=== PATIENT | female | born 1995 | race Hispanic/Latino ===

== ENCOUNTER 2020-04-16 03:05 | Day surgery (SDC) | payer SELFPAY ==
[2020-04-16 03:32] VITALS: BP 113/68; TEMP 98.6; BMI 34.7
--- NOTE | 2020-04-16 04:13 | PDOC.FPROB ---
FMR OB H&P: HPI - History of Present Illness Chief Complaint: abdominal pain History of Present Illness: Pt is a 24yo @ 37.1wks who presents for evaluation of one episode of abdominal pain. Pain woke her from sleep at 1am, lasted 1-2minutes, resolved on own, described as starting off as cramp and then tightness all over, no radiation. Not had pain like this before. +FM. Was seen at [facility] today and told her cervix was closed. Just started taking iron yesterday. No records from [facility] at this time, but patient reports that all labs and US have been normal. Denies LOF, vaginal bleeding/discharge/pain, TORRES, N/V, vision change, CP, SOB. Primary Care Physician: [facility] FMR OB H&P: Current - Care : 1 Para: 0 Gestational age: 37.1 wks Due date: 05/06/20 Dating Criteria: no records Course/Complications: anemia of , started on iron FMR OB H&P: History - Past Medical History PMH: none - OB History OB History: , anemia of - MANAGER REVENUE History MANAGER REVENUE History: pt reports that pap was normal - Surgical History Sx History: none - Social History Social History: denies T/A/D - Family History Family History: Father: DM, "heart problems" FMR OB H&P: Medications - Current Home Medications: Medication Instructions Recorded Confirmed Type Ferrous Sulfate [Iron] 325 mg PO DAILY 04/16/20 04/16/20 History 21/Iron Fu/Folic Acid 1 tab PO DAILY 04/16/20 04/16/20 History [ Complete Caplet] Allergies/Adverse Reactions: Allergies Allergy/AdvReac Type Severity Reaction Status Date / Time No Known Allergies Allergy Unverified 04/16/20 03:26 FMR OB H&P: ROS - Review of Systems General: denies: fever/chills, recent trauma Eyes: denies: vision changes Cardiovascular: reports: edema (chronic). denies: chest pain Respiratory: denies: cough, congestion, shortness of breath Gastrointestinal: reports: abdominal pain. denies: nausea, vomiting, diarrhea Genitourinary (Female): denies: dysuria, vaginal discharge, vaginal pain, vaginal bleeding Neurologic: denies: headache FMR OB H&P: Vital Signs - Maternal Vital signs: Vital Signs - First Documented Temp Pulse Resp BP Pulse Ox 98.6 F 89 18 113/68 100 04/16/20 03:12 04/16/20 03:12 04/16/20 03:12 04/16/20 03:12 04/16/20 03:12 - Heart Tones Baseline: 130 Variability: moderate Acceleration: present Deceleration: absent Category: category 1 [employer] contractions every: irregular FMR OB H&P: Physical Exam - Physical Exam General: NAD, awake, alert and oriented HEENT: normocephalic and atraumatic, no scleral icterus, grossly normal vision, grossly normal hearing Neck: supple, FROM Chest: non-tender to palpation Heart: RRR, normal S1/S2, no murmurs/rubs/gallops, pulses present, no edema General: CTAB, no respiratory distress Abdomen: soft, gravid, non-tender, bowel sound present Musculoskeletal: pulses present, FROM in all four extremities, no atrophy Neurological: no focal deficit Skin: no rash, good tugor, capillary refill <2 seconds Psychiatric: intact recent and remote memory, normal mood and affect - Pelvic Exam SVE: closed FMR OB H&P: A/P Discussion: Date/Time: 04/16/20 0409 Pt is a 24yo @ 37.1wks #abdominal pain - PE: pt does not appear to be in acute distress, abdomen non-tender, soft - likely due to betsy-murillo contraction - not likely to be biliary colic: not related to food, short duration, no N/V - FHT: Cat 1 130/mod/+accel, no decel; irregular contractions not felt by patient - VSS. advised pt to drink plenty of fluid and f/u outpatient Tammi Deluna, PGY1 This H&P was discussed with Dr. Diya Figueredo and Dr. Radhames Durham who agree with the above documentation and plan.
--- NOTE | 2020-04-16 04:16 | PDOC.BPN ---
- Brief Progress Note OBGYN Faculty PNC patient at 37 weeks Triage B I have seen and evaluated the pt at bedside. CC: 1-2 min pain "across the abdomen", no radiation. Exam is benign. I do not feel this is c/w biliary colic based on location and brevity of pain. Not associated with po intake, no nausea, no SOB, no VB, no LOF , no fevers, no recent trauma. Clinically she is well. NST reactive. Agree with Dr Deluna plan. Ok for outpatient f/u
== END 2020-04-16 04:20 | disposition home or self-care (01) ==
LOC: L&D/OP 03:05
PROVIDERS: ATTEND Obstetrics & Gynecology
DX: O99.89 Other specified diseases and conditions complicating pregnancy, childbirth and the puerperium (principal); R10.9 Unspecified abdominal pain; O99.013 Anemia complicating pregnancy, third trimester; D64.9 Anemia, unspecified; Z3A.37 37 weeks gestation of pregnancy; Z79.899 Other long term (current) drug therapy
CPT/HCPCS: 99282

== ENCOUNTER 2020-04-28 08:35 | Outpatient (CLI) | payer OTHER ==
[2020-04-28 16:42] LABS: SARS-CoV-2 MS2 Positive; SARS-CoV-2 N Gene Positive; SARS-CoV-2 S Gene Positive; SARS-CoV-2 by NAA DETECTED (NotDetected); SARS-CoV-2 orf1ab Positive
== END 2020-04-28 08:36 | disposition home or self-care (01) ==
LOC: LABSCS 08:35
PROVIDERS: ATTEND Family Medicine
DX: U07.1 COVID-19 (principal)
CPT/HCPCS: 87635; U0003

== ENCOUNTER 2020-05-01 19:45 | Inpatient (IN) | payer OTHER, SELFPAY ==
[2020-05-02 00:28] VITALS: BMI 33.5
[2020-05-02] MEDS ORDERED: Methylergonovine 0.2 MG/ML VIAL IM PRN (01:52)
[2020-05-02] MEDS ORDERED: Misoprostol 200 MCG TAB PR PRN (01:52)
[2020-05-02] MEDS ORDERED: Carboprost 250 MCG/ML AMP IM PRN (01:52)
[2020-05-02] MEDS ORDERED: Lidocaine 1% (PF) 30 ML VIAL SC PRN (01:52)
[2020-05-02] MEDS ORDERED: hydrALAZINE 20 MG/ML VIAL SLOW IVP PRN (01:52)
[2020-05-02] MEDS ORDERED: NS / Oxytocin 40 units/1000ml 1,000 ML IV PRN (01:52)
[2020-05-02] MEDS ORDERED: Promethazine HCl 25 MG/ML VIAL IM PRN (01:52)
[2020-05-02] MEDS ORDERED: Ibuprofen 800 MG TAB PO PRN (01:52)
[2020-05-02] MEDS ORDERED: Ondansetron PF 4 MG/2 ML Vial IVP PRN (01:52)
[2020-05-02] MEDS ORDERED: Misoprostol 100 MCG TAB ONE (02:04)
--- NOTE | 2020-05-02 02:14 | PDOC.FPROB ---
FMR OB H&P: HPI - History of Present Illness Chief Complaint: eIOL History of Present Illness: 24 y/o F at 39.3 wks by 13 wk sono presents for elective IOL. Endorses good movement. Not feeling contractions, no LOF, vaginal bleeding, vaginal discharge, or urinary symptoms. Screened positive for COVID on 04/28, reports occasional cough but otherwise asymptomatic. Denies any oral or genital lesions or burning. Primary Care Physician: MARIA D Yusuf FMR OB H&P: Current - Care : 1 Para: 0 Gestational age: 39.3 Due date: 05/06/2020 Dating Criteria: 13 wk sono Course/Complications: IUGR at 31 weeks, resolved on subsequent growth sono; evaluated by MFM and +CMV IgG, MFM has requested placental pathology due to this. 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 NILM - Surgical History Sx History: none - Social History Social History: denies etoh, tobacco, drugs - Family History Family History: cancer, DM, heart disease, autism FMR OB H&P: Medications - Current Home Medications: Medication Instructions Recorded Confirmed Type Ferrous Sulfate [Iron] 325 mg PO DAILY 04/16/20 05/02/20 History 21/Iron Fu/Folic Acid 1 tab PO DAILY 04/16/20 05/02/20 History [ Complete Caplet] Ibuprofen [Motrin] 800 mg PO Q8HR PRN #21 tab 05/04/20 Rx Allergies/Adverse Reactions: Allergies Allergy/AdvReac Type Severity Reaction Status Date / Time No Known Allergies Allergy Verified 05/02/20 00:28 FMR OB H&P: ROS - Review of Systems General: denies: fever/chills, fatigue Eyes: denies: vision changes, floaters ENT: denies: nasal congestion, rhinorrhea Cardiovascular: denies: chest pain, palpitation, edema Respiratory: reports: cough. denies: congestion, shortness of breath Gastrointestinal: denies: abdominal pain, cramping, nausea, vomiting, diarrhea, constipation Genitourinary (Female): denies: dysuria, hematuria, polyuria, vaginal discharge, vaginal pain, vaginal bleeding, contractions, vaginal pressure Musculoskeletal: denies: pain Neurologic: denies: weakness, headache Integumentary: denies: rash, lesions Endocrine: denies: polydipsia, polyuria FMR OB H&P: Vital Signs - Maternal Vital signs: Vital Signs - First Documented Temp Pulse Resp BP Pulse Ox 98.0 F 98 16 111/74 100 05/02/20 00:20 05/02/20 00:20 05/02/20 00:20 05/02/20 00:20 05/02/20 00:20 - Heart Tones Baseline: 150 Variability: moderate Acceleration: present Deceleration: absent Category: category 1 [place] contractions every: 5 min FMR OB H&P: Physical Exam - Physical Exam General: NAD, awake, alert and oriented HEENT: normocephalic and atraumatic, EOMI, MMM, conjunctiva clear, grossly normal vision, grossly normal hearing Neck: supple Chest: non-tender to palpation Heart: RRR, normal S1/S2, no murmurs/rubs/gallops, pulses present, no edema General: CTAB, no respiratory distress, good air movement, no rales/rhonchi, no wheezing Abdomen: soft, gravid, non-tender, bowel sound present Musculoskeletal: pulses present Neurological: sensation to pain,touch and proprioception grossly normal, no clonus, no focal deficit Skin: no rash, capillary refill <2 seconds Lymphatic: no unusual bruising or bleeding Psychiatric: intact recent and remote memory, good judgement and insight, normal mood and affect - Pelvic Exam Vulva: no lesions Deviation from normal: speculum exam without HSV lesions Cervix: no lesions SVE: 1/10/-3/firm/posterior Kelly score: 1 Membranes: intact Presentation: cephalic on bedside sono FMR OB H&P: Results - Imaging Imaging: cephalic presentation by bedside sono FMR OB H&P: A/P Disposition: Ángel James 24 y/o F at 39.3 wks for eIOL. Cephalic presentation on bedside sono. - SVE 08/24/-3/posterior/firm, Kelly 1 @ 0230 - Cytotec x1 - Recheck SVE in 4 hours COVID positive Occasional cough, positive screen on 04/28. - COVID isolation precautions Hx of IUGR, TORCH IUGR on 31 wk sono noted, resolved by 36 weeks. Most recent growth sono with [place] 13%. CMV IgG pos, CMV IgM neg. - proceed with induction of labor - send placenta for path per [facility] Hx HSV No prodromal symptoms. Thorough internal and external examination performed, no active lesions. - may proceed with vaginal delivery Anemia of Hgb/Hct 11.0/31.3. - monitor bleeding post delivery Discussion: Date/Time: 05/02/20 0207 This H&P was discussed with Dr. Canada and Dr. Branch who agree with the above documentation and plan. Addendum - Attending - Attending Attestation Date/Time: 05/06/20 1038 I personally evaluated the patient and discussed the management with Dr. Canada. I agree with the History, Examination, Assessment and Plan documented above with any addition or exceptions noted below.
[2020-05-02] MEDS ORDERED: Misoprostol 100 MCG TAB VAG SCH (02:30)
[2020-05-02] MEDS: Lactated Ringer's 1,000 ML IV SCH ×3 (02:34→18:35)
[2020-05-02 02:50] LABS: Hemoglobin 13.4 g/dL (12.0-16.0); Mean Corpuscular HGB CONC 34.8 g/dL (32.0-36.0); Mean Corpuscular Hemoglobin 32.1 pg (27.0-31.0); Mean Corpuscular Volume 92.2 fL (78.0-98.0); Mean Platelet Volume 8.9 fL (7.4-10.4); Platelet Count 180 thou/uL (130-400); RBC Distribution Width 12.2 % (11.5-14.5); Red Blood Cell (RBC) Count 4.17 mill/uL (4.20-5.40); White Blood Cell (WBC) Count 6.7 thou/uL (4.8-10.8)
[2020-05-02 03:29] LABS: HBSAg Index 0.17 S/CO (0-0.99); Hep B Surf Ag Non-Reactive S/CO (NonReactive)
[2020-05-02 05:26] LABS: Syphilis Antibody Nonreactive (Nonreactive); Syphilis Antibody Index 0.02 S/CO (<1.00 Non-Reactive)
--- NOTE | 2020-05-02 07:53 | PDOC.LDPN ---
Labor & Delivery Progress Note - Subjective Subjective: comfortable, no concerns - Objective Vital signs reviewed and normal: yes General: NAD, breathing through contractions SVE: posterior, moderate Dilation: 2 Effacement: 50% Station: -2 FHT: category 1, variability present [place] contractions every: 2-3 min Other exam findings: intact Plan: continue plan of care -: - monitor contractions. Place another cytotec if contractions space out - consider balloon if no change at next check.
[2020-05-02] MEDS ORDERED: NS w/ Oxytocin 10 units 500 ML ONE (09:52)
--- NOTE | 2020-05-02 09:52 | PDOC.BPN ---
- Brief Progress Note Encounter Date: 05/02/20 Encounter Time: 09:00 Cervical check by RN /-2, soft and posterior Kelly 5 Ctx every 4-5 min. Cat 1. Plan: start pitocin. Recheck at 11:[address] balloon if not making adequate change. Discussed w/ Dr. Munson who agrees w/ plan.
[2020-05-02] MEDS: NS w/ Oxytocin 10 units 500 ML IV SCH (09:59)
[2020-05-02] MEDS ORDERED: Butorphanol Tartrate 1 MG/ML VIAL ONE ×2 (11:35→11:46)
[2020-05-02] MEDS ORDERED: Butorphanol Tartrate 1 MG/ML VIAL SLOW IVP PRN ×2 (11:47→11:49)
--- NOTE | 2020-05-02 11:53 | PDOC.OBLPN ---
FMR OB Labor PN: Subj - Interval History Hospital Day: 1 Interval History: Oxytocin at 4 mU/min. Ctxn's noted q3 min on monitor but pt. not feeling. FMR OB Labor PN: Obj - Maternal Vital signs: BP: 112/69 HR: 95 RR: 16 Tmax: 98.5 - Procedures Procedures: Cook Balloon placed without complications. Pt. tolerating but feeling pain FMR OB Labor PN: Exam - Physical Exam General: NAD, awake, alert and oriented Abdomen: soft, gravid, non-tender Psychiatric: good judgement and insight, normal mood and affect - Pelvic Exam SVE: 1.5/50/-2/soft/posterior Membranes: Intact Presentation: Vertex FMR OB Labor PN: Data - Labs Lab results: Laboratory Results - last 24 hr 05/02/20 05/02/20 05/02/20 02:27 02:27 02:27 WBC 6.7 RBC 4.17 L Hgb 13.4 Hct 38.5 MCV 92.2 MCH 32.1 H MCHC 34.8 RDW 12.2 Plt Count 180 MPV 8.9 Syphilis IgG/IgM Ab Nonreactive Hep Bs Antigen Non-Reactive Blood Type Antibody Screen Antibody Identification 05/02/20 05/02/20 02:27 03:54 WBC RBC Hgb Hct MCV MCH MCHC RDW Plt Count MPV Syphilis IgG/IgM Ab Hep Bs Antigen Blood Type A NEGATIVE A NEGATIVE Antibody Screen POSITIVE H Antibody Identification NEGATIVE FMR OB Labor PN: A/P - Problem List (1) Term Current Visit: Yes Onset Date: ~05/02/20 Status: Acute Code(s): Z34.90 - ENCNTR FOR SUPRVSN OF NORMAL , UNSP, UNSP TRIMESTER Assessment and Plan: eIOL at 39 weeks EGA. Pt. received 1 cytotec. Pit started now at 4 mU/min. Robert q3min, but not felt. Cook Balloon placed at 1130. Continue active mgt of IOL. (2) COVID-19 virus detected Current Visit: Yes Status: Acute Code(s): U07.1 - COVID-19 Assessment and Plan: Asymptomatic. Exposure precautions engaged and will be continued for the duration of hospitalization. (3) IUGR, Current Visit: Yes Status: Acute Code(s): O36.5990 - MATERN CARE FOR OTH OR SUSP POOR FETL GRTH, UNSP TRI, UNSP Assessment and Plan: Resolved on f/u exams with MFM. No active TORCH infection detected. Placenta for path at delivery. Discussion: Date/Time: 05/02/20 1150 See above.
[2020-05-02] MEDS ORDERED: Fentanyl 4 mcg/Bup 0.1% Cadd 100 ML ONE ×2 (15:13→23:03)
--- NOTE | 2020-05-02 15:48 | PDOC.LDPN ---
Labor & Delivery Progress Note - Subjective Subjective: vaginal pressure, no concerns - Objective Vital signs reviewed and normal: yes General: NAD SVE: Cooks balloon checked and in place FHT: category 1 (Accels present, no decels, moderate variability) [place] contractions every: 2-3 Procedures: Epidural - Assessment (1) COVID-19 virus detected Code(s): U07.1 - COVID-19 Current Visit: Yes Status: Acute (2) IUGR, Code(s): O36.5990 - MATERN CARE FOR OTH OR SUSP POOR FETL GRTH, UNSP TRI, UNSP Current Visit: Yes Status: Acute (3) Term Code(s): Z34.90 - ENCNTR FOR SUPRVSN OF NORMAL , UNSP, UNSP TRIMESTER Current Visit: Yes Status: Acute Plan: continue plan of care -: Term sIUP -Cook balloon in place -Contractions and FHT as above -Pt received epidural at this check -Plan to recheck in 4 hours -Continue active management of IOL Positive Covid-19 Asymptomatic. Exposure precautions engaged and will be continued for the duration of hospitalization. IUGR Resolved on f/u exams with MFM. No active TORCH infection detected. Placenta for path at delivery.
[2020-05-02] MEDS ORDERED: Calcium Carbonate 500 MG ChewTAB PO PRN (16:59)
--- NOTE | 2020-05-02 19:54 | PDOC.LDPN ---
Labor & Delivery Progress Note - Subjective Subjective: comfortable - Objective General: NAD, resting, breathing through contractions Effacement: 75% Station: -2 FHT: category 1, variability present [place] contractions every: 2-4 Other exam findings: SROM clear fluid -: Term sIUP -Vertex on bedside sono @ induction -Epidural in place -Mostly cat 1 strip except few variables during rupture -Cook balloon out @ 1830, 5/-2 -SROM, SVE @ 1945 6/-2 -Continue active management of IOL Positive Covid-19 Asymptomatic. Exposure precautions engaged and will be continued for the duration of hospitalization. IUGR Resolved on f/u exams with MFM. No active TORCH infection detected. Placenta for path at delivery.
--- NOTE | 2020-05-02 21:54 | PDOC.LDPN ---
Labor & Delivery Progress Note - Subjective Subjective: comfortable - Objective Vital signs reviewed and normal: yes General: NAD, breathing through contractions SVE: /-1 FHT: category 1 [place] contractions every: 2 min IUPC placed: yes -: Term sIUP -Vertex on bedside sono @ induction -Epidural in place -Mostly cat 1 strip except few variables during rupture -s/p SROM at last check -SVE /-1 -Continue active management of IOL Positive Covid-19 Asymptomatic. Exposure precautions engaged and will be continued for the du ration of hospitalization. IUGR Resolved on f/u exams with MFM. No active TORCH infection detected. Placenta for path at delivery.
[2020-05-03] MEDS ORDERED: Fentanyl 100 MCG/2 ML VIAL ONE (00:12)
[2020-05-03] MEDS: NS / Oxytocin 40 units/1000ml 1,000 ML IV SCH ×2 (00:50→02:02)
[2020-05-03] MEDS ORDERED: Milk Of Magnesia 30 ML UDCUP PO PRN (01:40)
[2020-05-03] MEDS ORDERED: Bisacodyl 10 MG SUPP PR PRN (01:40)
[2020-05-03] MEDS ORDERED: Benzocaine-Menthol 82.5 ML CAN TOP PRN (01:40)
[2020-05-03] MEDS ORDERED: Preparation H Ointment 28 GM TUBE PR PRN (01:40)
[2020-05-03] MEDS ORDERED: hydrALAZINE 20 MG/ML VIAL SLOW IVP PRN (01:40)
--- NOTE | 2020-05-03 01:47 | PDOC.OPDEL ---
OB Operative/Delivery Note - Additional Findings/Plan Compilations/Other Findings: Delivering Physician : Katie Attending: Shukri Munson Procedure: Spontaneous Vaginal Delivery Anesthesia: epidural, Local for Repair QBL: 330 ml Pre-op Diagnosis: 1. Term intrauterine in labor 2. COVID + 3. Hx IUGR, resolved 4. Hx HSV1 IgG+ 5. Hx CMV IgG+ Post-op Diagnosis: 1. Term intrauterine , delivered 2. same as above Indications: A 24 y/o female presents to L&D for elective induction of labor Delivery Note: This is 24 yo F @ 39.4 wks who delivered a viable F infant at 0045 on 05/03/20. Following an uneventful antepartum course, a vigorous female was delivered over an intact perineum in the occipitoanterior position. Anterior Shoulder and then remainder of the body delivered. No nuchal cord. The head was held down and mouth and nares were bulb suctioned. Cord clamped after delayed cord clamping and cut and cord blood collected. Placenta delivered intact in the [place] with a 3 vessel cord noted. Fundal massage was performed and the fundus was firm. The cervix and vagina were inspected and second degree laceration was noted and repaired with 3.0 vicryl in the usual fashion with good approximation and hemostasis after a local anesthetic lidocaine was injected at site.) remains in room with mom due to maternal COVID+ status. Apgars were 8/9 at 1 & 5 minutes, respectively. Patient tolerated delivery well and went to after routine recovery/care.
[2020-05-03 09:00] LABS: Hemoglobin 10.4 g/dL (12.0-16.0); Mean Corpuscular Volume 91.5 fL (78.0-98.0); Platelet Count 161 thou/uL (130-400); Red Blood Cell (RBC) Count 3.24 mill/uL (4.20-5.40); White Blood Cell (WBC) Count 10.7 thou/uL (4.8-10.8)
[2020-05-03] MEDS ORDERED: Adacel (T-DAP) 0.5 ML SYRINGE IM ONE (09:00)
[2020-05-03] MEDS: Ibuprofen 800 MG TAB PO SCH ×3 (12:19→22:10)
[2020-05-03] MEDS: Lactated Ringer's 1,000 ML IV SCH (18:55)
[2020-05-03] MEDS: Ferrous Sulfate 325 MG TAB PO SCH (18:55)
[2020-05-03] MEDS: NS w/ Oxytocin 10 units 500 ML IV SCH (18:56)
[2020-05-03] MEDS: Docusate Calcium (SURFAK) 240 MG CAP PO SCH ×2 (18:56→22:10)
[2020-05-04] MEDS: Ibuprofen 800 MG TAB PO SCH (06:04)
--- NOTE | 2020-05-04 06:07 | PDOC.PP ---
Post Progress Note Post Day #: 1 Subjective: Doing well, no concerns. Received rhogam injection. PO intake tolerated: yes Flatus: yes Ambulation: yes Vital Signs (12 hours) Temp Pulse Resp BP 05/03/20 20:21 97.4 F L 87 15 105/65 Weight Weight 78.018 kg - Physical Examination General: NAD Cardiovascular: no m/r/g, RRR Respiratory: clear to auscultation bilaterally, non-labored breathing Abdominal: + bowel sounds, no distention, appropriately TTP Fundus firm & at: below umbilicuds Neurological: no gross focal deficits Psychiatric: A&Ox3, normal affect Result Diagrams: 05/03/20 08:30 Additional Labs: Post Labs Hep Bs Antigen Non-Reactive S/CO (NonReactive) 05/02/20 02:27 Blood Type A NEGATIVE 05/02/20 03:54 (1) IUGR, Code(s): O36.5990 - MATERN CARE FOR OTH OR SUSP POOR FETL GRTH, UNSP TRI, UNSP Status: Acute (2) Term Code(s): Z34.90 - ENCNTR FOR SUPRVSN OF NORMAL , UNSP, UNSP TRIMESTER Status: Acute - Assessment/Plan 24 yo G1 now P1001 delivered F infant at 39.3 weeks on 05/03 # Day 1 -Eating, voiding, stooling, ambulating. Pain is well controlled. Lochia minimal. - well, no concerns -F/up PNC in 2 weeks -Patient is already set up for Mirena IUD insertion in 6 weeks #Asymptomatic Covid+ -Vitals stable -May go home, isolate as much as possible to avoid spread #Anemia -Asymptomatic -Continue Fe # -going well, received pump yesterday -Continue PNV Dispo: Plan for DC to home today, pending baby's bilirubin results. Emy Yusuf MD PGY3
[2020-05-04 06:14] LABS: Mean Corpuscular HGB CONC 34.6 g/dL (32.0-36.0); Mean Corpuscular Hemoglobin 31.9 pg (27.0-31.0); Mean Corpuscular Volume 92.1 fL (78.0-98.0); Mean Platelet Volume 8.7 fL (7.4-10.4); Platelet Count 172 thou/uL (130-400); RBC Distribution Width 12.2 % (11.5-14.5); Red Blood Cell (RBC) Count 3.13 mill/uL (4.20-5.40)
[2020-05-04 09:08] VITALS: BP 115/80; TEMP 97.6
[2020-05-04] MEDS: Lactated Ringer's 1,000 ML IV SCH ×2 (09:14→10:25)
[2020-05-04] MEDS: Ferrous Sulfate 325 MG TAB PO SCH (09:14)
[2020-05-04] MEDS: Docusate Calcium (SURFAK) 240 MG CAP PO SCH (09:15)
[2020-05-04] MEDS: NS w/ Oxytocin 10 units 500 ML IV SCH (09:15)
[2020-05-04] MEDS ORDERED: Lidocaine 2% MPF 10 ML AMP (For Epidural Use) ONE (09:57)
== END 2020-05-04 13:09 | disposition home or self-care (01) | DRG 805 ==
LOC: L&D 23:35
PROVIDERS: ADMIT Emergency Medicine; ATTEND Emergency Medicine
PROC: 8E0ZXY6 Isolation (ICD-10-PCS; 2020-05-01)
PROC: 0U7C7ZZ Dilation of Cervix, Via Natural or Artificial Opening (ICD-10-PCS; 2020-05-02)
PROC: 3E033VJ Introduction of Other Hormone into Peripheral Vein, Percutaneous Approach (ICD-10-PCS; 2020-05-02)
PROC: 10E0XZZ Delivery of Products of Conception, External Approach (ICD-10-PCS; principal; 2020-05-03)
PROC: 0KQM0ZZ Repair Perineum Muscle, Open Approach (ICD-10-PCS; 2020-05-03)
PROC: 3E0334Z Introduction of Serum, Toxoid and Vaccine into Peripheral Vein, Percutaneous Approach (ICD-10-PCS; 2020-05-03)
DX: O98.52 Other viral diseases complicating childbirth (principal); U07.1 COVID-19; Z37.0 Single live birth; Z3A.39 39 weeks gestation of pregnancy; O99.02 Anemia complicating childbirth; D64.9 Anemia, unspecified; O70.1 Second degree perineal laceration during delivery; O26.893 Other specified pregnancy related conditions, third trimester; Z67.11 Type A blood, Rh negative; Z86.19 Personal history of other infectious and parasitic diseases
CPT/HCPCS: 36415; 51702; 85027; 85461; 86780; 86850; 86870; 86900; 86901; 87340; 88307; 90384; 96372; J0595; J2590; J3010